=== PATIENT | female | born 1985 | race Caucasian/White ===

== ENCOUNTER 2024-08-27 09:04 | Emergency (ER) | payer MEDICAID, SELFPAY ==
--- NOTE | ~2024-08-27 | XR_ITS ---
EXAMINATION: XR elbow RT min 3V DATE: 08/27/2024 09:56 INDICATION: Trauma to the right elbow. TECHNIQUE: Anteroposterior, two oblique and lateral views of the right elbow were obtained. COMPARISON: None. FINDINGS: Alignment is normal. No fracture or joint effusion. Joint spaces are normal. Soft tissues are unremar kable. IMPRESSION: 1. Negative right elbow radiographs. Reviewed, dictated and finalized at location A.
[2024-08-27 09:10] VITALS: BP 110/71; PULSE 96; RESP 20; TEMP 36.9; O2SAT 96
--- NOTE | 2024-08-27 09:41 | ED_ITS ---
HPI - General Adult General Chief complaint: Extremity Injury, Lower Stated complaint: right elbow injury /right leg painLe Time Seen by Provider: 08/27/24 09:43 Source: patient, RN notes reviewed and old records reviewed Mode of arrival: ambulatory Limitations: no limitations History of Present Illness HPI narrative: 38 year old female presents to [facility] care with complaints of lifting up a floor parker yesterday and she dropped it trying to get it in her trunk and it hit the inner aspect of her right elbow with patient reporting pain to area today. She also states that she has been having muscle cramping to her legs and feet starting about 2 am today. Patient also reports that she has had some URI symptoms with cough for the past 5 days and has been taking DayQuil and NyQuil and Zyrtec, reports no fevers. Patient reports no calf pain redness or swelling. MD complaint: right inner elbow pain, muscle cramps in legs, URI symptoms Onset (ago): day(s) (since yesterday elbow, during night ewith muscle cramps legs and feet and URI symptoms 5 days ) Location: right and upper extremity (inner elbow) Treatments prior to arrival: NSAID, cold therapy and other (DayQuil,NyQuil and Zyrtec, ice, dominik wrap and Aleve) Related Data Allergies Allergy/AdvReac Type Severity Reaction Status Date / Time No Known Allergies Allergy Verified 08/27/24 09:37 Review of Systems Review of Systems: CONSTITUTIONAL: Denies fever, chills, or sweats. EYES: Denies visual changes, redness, or discharge. ENT: Reports rhinorrhea, congestion, no sore throat, or otalgia. CARDIOVASCULAR: Denies chest pain, palpitations, or edema. RESPIRATORY:Reports cough no acute dyspnea. GASTROINTESTINAL: Denies abdominal pain, nausea, vomiting, or diarrhea. GENITOURINARY: Denies dysuria or hematuria. SKIN: Denies rash or itching. MUSCULOSKELETAL: Denies back pain, positive for pain to right inner elbow full ROM, or myalgia, report leg foot cramping NEUROLOGIC: Denies headache, numbness, or weakness. PSYCHIATRIC: Denies anxiety or depression. All systems reviewed & are unremarkable except as noted in HPI and below PMFSH Surgical History Surgical History (Updated 08/27/24 @ 09:44 by Shyann Park NP) H/O right wrist surgery radial shortening to right wrist Previous section Social History Social History (Updated 08/27/24 @ 09:51 by Shyann Park NP) Smoking status: Current every day smoker Tobacco type: e-cigarettes/vaping Alcohol use details: reports no alcohol use Substance use: current Substance use type: marijuana Living arrangements: with family Gender identity (if verbalized by the patient): Female Comments At time of signature, agree with nursing past medical, surgical, social and f amily history. There is no relevant family history pertinent to the presenting complaint Exam Narrative: GENERAL: Well-appearing, well-nourished, and in no acute distress. HEAD: Normocephalic, atraumatic. EYES: PERRLA and EOMI. ENT: Nares clear, clear rhinorrhea no epistaxis. Mucous membranes moist.TM;s no rmal throat pink with no swelling noted NECK: Supple. no lymphadenopathy CHEST: Scattered wheezing on auscultation. No respiratory distress. HEART: Regular rate and rhythm. No murmur heard. Normal peripheral pulses. ABDOMEN: Soft, nontender, nondistended, normal active bowel sounds. EXTREMITIES: Normal range of motion. No edema. SKIN: Warm, dry, no rash. NEURO: No focal deficits. Alert and oriented x3. Course Course Emergency Course: Patient is aware of diagnosis, understands and agrees to treatment plan.? Anticipatory guidance given.? Patient agrees to follow-up as directed and is aware of reasons to seek care at the emergency department. Portions of this record may have been created with voice recognition software Level of Care: Express Care Visit Vital Signs Vital signs: Vital Signs Temperature 36.9 C 08/27/24 09:10 Pulse Rate 96 08/27/24 09:10 Respiratory Rate 20 08/27/24 09:10 Blood Pressure 110/71 08/27/24 09:10 Pulse Oximetry 96 08/27/24 09:10 Oxygen Delivery Room Air 08/27/24 09:10 Temperature 36.9 C 08/27/24 09:10 Pulse Rate 96 08/27/24 09:10 Respiratory Rate 20 08/27/24 09:10 Blood Pressure 110/71 08/27/24 09:10 Pulse Oximetry 96 08/27/24 09:10 Oxygen Delivery Room Air 08/27/24 09:10 Reviewed Medical Decision Making MDM Narrative Medical decision making narrative: Exam findings and imaging show no acute concerns or changes; patient is non-tox ic appearing and is in no distress.? Patient is appropriate for outpatient treatment and follow-up Differential Diagnosis Differential Diagnosis: left elbow pain,leg cramping, URI, bronchitis,contusion right elbow Medical Records Medical records reviewed: Yes I reviewed the external patient's medical records. Vital Signs Vital Signs: Vital Signs Temperature 36.9 C 08/27/24 09:10 Pulse Rate 96 08/27/24 09:10 Respiratory Rate 20 08/27/24 09:10 Blood Pressure 110/71 08/27/24 09:10 Pulse Oximetry 96 08/27/24 09:10 Oxygen Delivery Room Air 08/27/24 09:10 Temperature 36.9 C 08/27/24 09:10 Pulse Rate 96 08/27/24 09:10 Respiratory Rate 20 08/27/24 09:10 Blood Pressure 110/71 08/27/24 09:10 Pulse Oximetry 96 08/27/24 09:10 Oxygen Delivery Room Air 08/27/24 09:10 reviewed Imaging Data Attestation: I personally reviewed and interpreted this imaging study as follows: My impression: Negative right elbow , no joint effusion, soft tissues are unremarkable Radiologist's impression: [facility] [address] [place] [address] XRay Report Signed Patient: Jennifer Cotton : 1985 MR#: [id number] Age: 38 Acct:[id number] Loc: [facility] ADM Date: 08/27/24Attending Dr: Ordering Physician: Shyann Park APRN Date of Service: 08/27/24 Procedure(s): XR elbow RT min 3V Accession Number(s): [id number] cc: Shyann Park APRN~ EXAMINATION: XR elbow RT min 3V DATE: 08/27/2024 09:56 INDICATION: Trauma to the right elbow. TECHNIQUE: Anteroposterior, two oblique and lateral views of the right elbow were obtained. COMPARISON: None. FINDINGS: Alignment is normal. No fracture or joint effusion. Joint spaces are normal. Soft tissues are unremarkable. IMPRESSION: 1. Negative right elbow radiographs. Reviewed, dictated and finalized at location A. Please be advised this is a medical document. It is intended for [id number] communication. It is written in medical language and may contain unfamiliar abbreviations or verbiage. Medical documents are intended to carry relevant information, facts as evident, and the clinical opinion of the practitioner at the time of the encounter. This report may have been done utilizing a voice recognition system. Attempts have been made to correct errors. However, there may be uncorrected grammatical, spelling, and recognition errors present. The file time of this note does not necessarily represent the time of service. Dictated By: Juan Antonio Buck MD 08/27/24 1006 Signed By: <Electronically signed by Juan Antonio Buck MD in OV> Critical Care Time Critical Care Time Critical Care Time: No Discharge Plan Discharge Clinical Impression: Bronchitis, Muscle cramps Contusion of elbow, right Qualifiers: Encounter type: initial encounter Qualified Code(s): S50.01XA - Contusion of right elbow, initial encounter Patient Disposition: Home Condition: Stable Instructions: Antibiotic Form, Acute Bronchitis (ED), Leg Cramps (ED), Arthralgia (ED) Additional Instructions: Increase fluids especially juices and water Ebxc-lja-gdwyshz cough and cold medicine of your choice for your symptoms May continue DayQuil and NyQuil and Zyrtec for your Continue your inhaler/nebulizer as directed Steroids as directed--take with food heat to the face 20-30 minutes 4-6 times a day for pain Salt water gargles, throat lozenges or throat sprays as desired Antibiotic as directed--finished the medication Elastic wrap as directed for comfort for the next 5-7 days to right elbow Tylenol for lesser pain Ibuprofen regularly for the next 2-3 days for the inflammation Follow-up with PCP if further problems or concerns Ice to the area 20-30 minutes 4-6 times a day Elevate above heart Make sure you are drinking plenty of fluids and include foods high in potassium in diet If your symptoms persist, change or worsen significantly before you can contact your personal physician then please, without delay, go to the emergency department for further evaluation. Follow-up with PCP in 7-10 days or sooner if needed You need to stop vaping Patient Language: Yoruba Prescriptions: New prednisone 20 mg tablet 40 mg PO DAILY Qty: 10 0RF Rx Instructions: take with food take in the morning albuterol sulfate [Ventolin HFA] 90 mcg/actuation HFA aerosol inhaler 2 puff inhalation QID PRN (Reason: shortness of breath or wheezing) Qty: 6.7 0RF azithromycin 250 mg tablet See Rx Instructions .ROUTE .COMPLEX Qty: 6 0RF Rx Instructions: For 250 mg dose pack: take 500 mg today (day 1), then 250 mg for 4 days (days 2-5) Follow-up/Referrals: PHYSICIAN NOT ON STAFF,NONSTAFF [Primary Care Provider] - Time of Disposition: 10:19 Quality Rebeka Coma Scale Eyes: Open Verbal: Oriented and Alert Motor: Follows Commands [place] Coma Total Score: 15
== END 2024-08-27 10:25 | disposition home or self-care (01) ==
PROVIDERS: Emergency Provider Registered Nurse
DX: J40 Bronchitis, not specified as acute or chronic (principal); R25.2 Cramp and spasm; S50.01XA Contusion of right elbow, initial encounter; W20.8XXA Other cause of strike by thrown, projected or falling object, initial encounter; F17.290 Nicotine dependence, other tobacco product, uncomplicated; F12.90 Cannabis use, unspecified, uncomplicated
CPT/HCPCS: 73080; 99203; G0463